=== PATIENT | female | born 1975 | race Caucasian/White ===

== ENCOUNTER 2019-04-20 07:04 | Day surgery (SDC) | payer BC ==
[~2019-04-20] VITALS: Ht 165.1 cm; Wt 61.2 kg
[~2019-04-20 07:04] MED LIST: IBUPROFEN 200200 M1 PO; TURMERIC500 M2 PO; TYLENOL EXTRA500 MG PO; ZYRTEC10 M4 PO
[2019-04-20 11:52] VITALS: BP 103/63
--- NOTE | 2019-04-24 13:09 | O ---
[address] [address] OPERATIVE REPORT Name: SARAH JO Room #: DEP [facility].#: [id number] Admission: 04/20/19 ������������������ Attend Phys: Jeff Dillon MD Discharge: 04/20/19 ������������������ Date of : 73 Report #: [id number] THIS REPORT FOR: //name// CC: Gricelda Dillon DATE OF SERVICE: 04/20/2019 SERVICE: Orthopedic. FACILITY: [place] [facility]. SURGEON: Jeff Dillon MD. PROJECT MGR: Kori Burnham NP. INDICATIONS FOR PROJECT MGR: Extremity positioning, suture management, arthroscope handling, assistance with repair. PREOPERATIVE DIAGNOSIS: 1. Right hip pain. 2. Right hip impingement syndrome. 3. Right hip labral tear. POSTOPERATIVE DIAGNOSES: 1. Right hip pain. 2. Right hip impingement syndrome. 3. Right hip labral tear. 4. Right hip chondral wave sign. PROCEDURE: 1. Right hip arthroscopic labral repair. 2. Right hip arthroscopic Cam osteochondroplasty. 3. Right hip arthroscopic extraarticular subspine acetabuloplasty. COMPLICATIONS: None. DRAINS: None. SPECIMENS: None. ANESTHESIA: General with regional. FINDINGS: 1. Chondral wave sign with focal full thickness labral tear, treated with a Branford CinchLock suture anchor x 2. [address] [address] OPERATIVE REPORT Name: SARAH JO [id number] Admission: 04/20/19 ������������������ Attend Phys: Jeff Dillon MD Discharge: 04/20/19 ������������������ Date of : 73 Report #: [id number] 2. Prominent anterior inferior iliac spine causing subspine impingement treated with recession. 3. 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 HISTORY: The patient is a 43-year-old female with a history of chronic progressive persistent right hip pain that was affecting activities of daily living and failed all conservative measures including rest, activity modification, physical therapy, injections, modalities and oral medications as well as lifestyle modifications. 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 The MRI showed a labral tear. The risks, benefits, alternatives, and indications for surgery were discussed with her in detail after she had failed conservative measures and wished to proceed with surgical treatment. Risks include but not limited to pain, bleeding, infection, injury to nerve or blood vessels, persistent pain despite surgical intervention, failure of any repairs, reconstructions, progression of any preexisting chondral injury, stiffness, need for further surgery as well as complications related to anesthesia. DESCRIPTION OF PROCEDURE: After right lower extremity was correctly identified in the preoperative holding area as the operative site, the patient underwent placement of a single shot regional nerve block by anesthesia. She was then taken to the operating room where general anesthesia was induced without complications. She was padded appropriately. Prophylactic antibiotics were administered at appropriate time. C-arm was used to map out the femoral head and neck junction under fluoroscopy, mapping out the Cam deformity, which extended from about the 20 degree position to the 80 degree position with a maximum alpha angle of 65 degrees. Right leg was then prepped and draped in standard sterile fashion. Timeout procedure was performed. Traction was applied to right leg. Standard anterolateral portal was established followed by mid anterior working portal. There was immediately noted to be some synovitis and erythema. This will be an indication for postoperative CPM use to minimize adhesions due to the inflammation associated with the capsulitis. The transverse capsulotomy was completed. Hemostasis was achieved throughout. The capsule was reflected off the dorsal side of the labrum after the pathology had been identified. The labrum was quite mobilized, was the chondral wave sign. The subsequent lesion was dissected out and exposed and then the bur was used to perform an extraarticular subspine acetabuloplasty working above the acetabular rim until the impinging bone on the anterior column of the acetabulum had been adequately resected. The bur was then used to debride the acetabular rim to freshen up for labral repair and then Alysha CinchLock suture anchor x 2 was used to perform cerclage suture providing good compression of the labrum [address] [address] OPERATIVE REPORT Name: SARAH JO Room #: DEP [facility]#: [id number] Admission: 04/20/19 ������������������ Attend Phys: Jeff Dillon MD Discharge: 04/20/19 ������������������ Date of : 73 Report #: [id number] against the acetabular rim. Traction was then let down. The hip was flexed up. The transverse capsulotomy was then extended slightly down the femoral neck in a T shape to allow access to the Cam deformity and then a bur was used to perform Cam osteoplasty in typical fashion. Instruments were removed. C-arm was brought in. I assessed the Cam osteoplasty and felt that adequate resection had been completed. I placed the instruments back in the hip, lavaged the bony debris out of the hip and then closed the capsule with a total of four #2 Vicryl sutures. Instruments were removed. Arthroscopic effusion was drained. Portal sites were closed. Sterile dressing was applied. The patient was awakened from anesthesia and taken to recovery room in stable condition. There were no complications. All counts were recorded as correct. ��������������������������������������������� <ELECTRONICALLY SIGNED> ���������������������������������������� By: Jeff Dillon MD ��������������������������������������������� 04/24/19 [id number] Jeff Dillon MD /nt
== END 2019-04-20 17:10 | disposition home or self-care (01) ==
LOC: OR 07:04 → TBA 07:05 → OR 09:50
DX: S73.101A Unspecified sprain of right hip, initial encounter (principal); M25.851 Other specified joint disorders, right hip; R29.4 Clicking hip; X58.XXXA Exposure to other specified factors, initial encounter; Y93.89 Activity, other specified; Y92.89 Other specified places as the place of occurrence of the external cause; Y99.8 Other external cause status; Z98.890 Other specified postprocedural states
CPT/HCPCS: 50010; 50101; 50386; 51538; 52304; 52313; 55430; 56524; 56527; 57092; 57103; 62110; 62900; 70005